=== PATIENT | male | born 1940 | race Caucasian/White ===

== ENCOUNTER 2016-05-24 07:31 | Day surgery (SDC) | payer MEDICARE, OTHER ==
[2016-05-14 13:44] LABS: BASOPHILS 0.3 %; BASOPHILS ABSOLUTE 0.02 10/3/uL (0.0-0.16); EOSINOPHILS 1.9 %; EOSINOPHILS ABSOLUTE 0.15 10/3/uL (0.0-0.53); HEMATOCRIT 42.6 % (40.0-51.0); HEMOGLOBIN 14.3 g/dL (13.6-17.8); IMMATURE GRANULOCYTES 0.8 %; IMMATURE GRANULOCYTES ABSOLUTE 0.06 10/3/uL (0.0-0.11); LYMPHOCYTES 21.2 %; LYMPHOCYTES ABSOLUTE 1.68 10/3/uL (0.67-4.30); MEAN CORPUS HGB CONC 33.6 g/dL (32.0-36.0); MEAN CORPUSCULAR HEMOGLOB 29.7 pg (26.0-34.0); MONOCYTES 7.7 %; MONOCYTES ABSOLUTE 0.61 10/3/uL (0.21-1.20); NEUTROPHILS 68.1 %; NEUTROPHILS ABSOLUTE 5.39 10/3/uL (2.02-8.40); PLATELET COUNT 185 10/3/uL (150-400); RBC DISTRIBUTION WIDTH 14.1 % (12.0-16.0); RED CELL COUNT 4.81 10/6/uL (4.7-6.1); WHITE BLOOD CELLS 7.9 10/3/uL (4.5-10.5)
[2016-05-14 13:45] LABS: MANUAL DIFF NO %; MEAN CORPUSCULAR VOLUME 88.6 fL (80-100)
[2016-05-14 13:50] LABS: PARTIAL THROMBO TIME 28.3 SEC (22.5-37.2); PROTIME (NOT ORD) 13.2 SEC (12.0-14.5)
[2016-05-14 14:00] LABS: CHLORIDE, SERUM 102 MMOL/L (96-112); CO2 (CARBON DIOXIDE) 27 MMOL/L (24-34); CREATININE 0.96 MG/DL (0.70-1.30); GFR AFRICAN AMERICAN 91 ML/MIN (>=60); GFR NON AFRICAN AMERICAN 78 ML/MIN (>=60); POTASSIUM, SERUM 4.5 MMOL/L (3.5-5.3); SODIUM, SERUM 142 MMOL/L (135-148)
[2016-05-14 14:02] LABS: BUN (BLOOD UREA NITROGEN) 24 MG/DL (6-23); GLUCOSE, SERUM 240 MG/DL (60-99)
--- NOTE | ~2016-05-24 | OP ---
[facility] Of [place] [address] [address] [place]. [address] NAME: MERVAT CORONA : 44 STATUS : REG [facility] PAT#: [id number] AGE: 75 ADM/REG DATE : 05/24/16 MR#: [id number] REPORT SERV DATE: 05/24/16 DICTATED BY: CLIFFORD TAYLOR DATE: 05/24/16 REPORT STATUS : Draft TRANSCRIBED BY: MODL DATE: 05/24/16 DATE OF PROCEDURE: 05/24/2016 PREOPERATIVE DIAGNOSES: 1. Nodular prostate with obstruction. 2. Phimosis. 3. Elevated PSA. POSTOPERATIVE DIAGNOSES: 1. Nodular prostate with obstruction. 2. Phimosis. 3. Elevated PSA. PROCEDURE PERFORMED: 1. Transrectal ultrasound with prostate needle biopsy. 2. Circumcision. SURGEON: Clifford Taylor M.D. ANESTHESIA: General. COMPLICATIONS: None. SPECIMEN: 1. Sextant prostate needle biopsies. 2. Foreskin. COMPLICATIONS: None. DRAINS: None. INDICATIONS: Mr. Corona is a 75-year-old, with a rising PSA and a newly developed right base prostate nodule. He presents for transrectal ultrasound of prostate needle biopsy. He has symptomatic phimosis. He is unable to retract the foreskin, it was causing spraying of his urinary stream. TECHNIQUE: Rocephin was given preop, was brought to the operating room, general anesthesia was administered. Genitals and perineum were prepped and draped. He was placed in the left lateral decubitus position with the knees flexed. Care was taken to pad pressure points. Digital rectal exam showed a 40 g prostate with a firm nodularity at the right base. Ultrasound measurements were obtained. There was no median lobe. Seminal vesicles were nondilated. There were calcifications at the right base. Prostate volume was estimated at 34.4 mL. Sextant prostate needle biopsies then obtained totaling 13 biopsies. Two biopsies were taken from the right mid, right apex, left base, left mid and left apex. Three biopsies Record Of [address] [place]. [address] NAME: MERVAT CORONA : 44 STATUS : REG [facility] PAT#: [id number] AGE: 75 ADM/REG DATE : 05/24/16 MR#: [id number] REPORT SERV DATE: 05/24/16 DICTATED BY: BRANDONCLIFFORD DATE: 05/24/16 REPORT STATUS : Draft TRANSCRIBED BY: RHIANNA DATE: 05/24/16 were taken from the right base in the area of firmness. Digital pressure was held against the biopsy sites for one minute after the biopsies. He was then returned supine. Penis was prepped and draped in the sterile fashion. Standard sleeve-type circumcision was performed. The proximal skin edge was incised sharply with a 15 blade. I performed a dorsal slit in order to inspect the penis and make the distal skin incision. The glans was unremarkable. No skin lesion was noted. The distal skin edge was incised circumferentially. I excised the redundant foreskin with Bovie. Proximal and distal skin edges were cauterized for hemostasis. The wound was irrigated. I reapproximated the proximal and distal skin edges in four quadrants with 3-0 Vicryl suture. The remainder of the skin reapproximation was with interrupted 3-0 chromic. A Vaseline dressing was applied. He was taken to recovery room in satisfactory condition. We will remove his dressing tomorrow. I will contact with prostate biopsy results when they are available. He will avoid sexual activity for four weeks and avoid bath tubs or swimming pools for 10 days. JUAN/RHIANNA Clifford Taylor M.D. / [id number] CC: Coral Macdonald D.O. F.A.C.P.
[~2016-05-24 07:31] MED LIST: ADVIL PO; ALPHA LIPOIC300 MG PO; AMARYL4 PO; ASAB PO; CALGLUCTAB PO; COZ50 PO; FISH-EPA1000 MG PO; GLUCPH PO; INSNOV7030 SC; L20 PO; MAGOX4 PO; NEUR600 PO; T3 PO; ULTRAM50 PO
== END 2016-05-24 17:43 | disposition home or self-care (01) ==
LOC: SDC 07:31
PROVIDERS: Urology
PROC: 0V903ZX Drainage of Prostate, Percutaneous Approach, Diagnostic (ICD-10-PCS; principal; 2016-05-24 08:45)
PROC: 0VTTXZZ Resection of Prepuce, External Approach (ICD-10-PCS; 2016-05-24 08:45)
DX: C61 Malignant neoplasm of prostate (principal); N48.0 Leukoplakia of penis; I10 Essential (primary) hypertension; E11.9 Type 2 diabetes mellitus without complications; G47.33 Obstructive sleep apnea (adult) (pediatric); Z91.19 Patient's noncompliance with other medical treatment and regimen; Z88.6 Allergy status to analgesic agent; Z79.82 Long term (current) use of aspirin; Z79.84 Long term (current) use of oral hypoglycemic drugs; Z79.4 Long term (current) use of insulin; Z79.899 Other long term (current) drug therapy
CPT/HCPCS: 76872; 76942; 80048; 82962; 85025; 85610; 85730; 88304; 88305; 93005; A9270-GY; J2250; J2405; J2710; J3010